=== PATIENT | male | born 1980 | race Asian ===

== ENCOUNTER 2017-07-30 08:24 | Emergency (ER) | payer OTHER ==
[2017-07-30 08:37] VITALS: BP 99/56
--- NOTE | 2017-07-30 09:05 | UC ---
Neck Pain HPI - HPI Summary HPI Summary: 37 yo Chinese male no phmx c/o acute left neck pain and spasm radiating to the top of left trapezius as he woke up with pain this AM. Denies numbness and tingling - History of Current Complaint Chief Complaint: UCUpperExtremity Stated Complaint: STIFF PAINFUL SHOULDER Time Seen by Provider: 07/30/17 08:35 Hx Obtained From: Patient Onset/Duration: Sudden Onset Severity: Moderate Pain Intensity: 8 - Allergies/Home Medications Allergies/Adverse Reactions: Allergies Allergy/AdvReac Type Severity Reaction Status Date / Time No Known Allergies Allergy Verified 07/30/17 08:37 Home Medications: Home Medications Cholecalciferol TAB* [Vitamin D TAB*] 1 tab PO DAILY 07/30/17 [History Confirmed 07/30/17] Ibuprofen TAB* [Advil TAB*] 200 mg PO Q6HR PRN 07/30/17 [History Confirmed 07/30] PMH/Surg Hx/FS Hx/Imm Hx - Additional Past Medical History Additional PMH: NO PMHX Previously Healthy: Yes - Surgical History Surgical History: Yes Surgery Procedure, Year, and Place: broken nose repair - Social History Alcohol Use: Rare Substance Use Type: None Smoking Status (MU): Never Smoked Tobacco Review Of Systems Constitutional: Positive: Negative Skin: Positive: Negative ENT: Positive: Negative Respiratory: Positive: Negative Cardiovascular: Positive: Negative Musculoskeletal: Positive: Decreased ROM - SEE HPI Neurological: Positive: Negative Psychological: Positive: Negative All Other Systems Reviewed And Are Negative: Yes Physical Exam Triage Information Reviewed: Yes Vital Signs: Initial Vital Signs Temp 37.6 C 07/30/17 08:30 Pulse 82 07/30/17 08:30 Resp 20 07/30/17 08:30 BP 99/56 07/30/17 08:30 Pulse Ox 96 07/30/17 08:30 Eye Exam: Normal ENT Exam: Normal Dental Exam: Normal Neck exam: Normal Neck: Positive: Other: - Left posterior scalene and trapezial tenderness on slight movement, ROM about neck limited due to pain and spasm Respiratory Exam: Normal Cardiovascular Exam: Normal Abdominal Exam: Normal Musculoskeletal Exam: Normal Neurological Exam: Normal Psychological Exam: Normal Skin Exam: Normal Neck Pain Course/Dx - Course Course Of Treatment: Warm compresses, zanaflex and naproxen - Differential Dx/Diagnosis Provider Diagnoses: acute tortic[place] Discharge - Discharge Plan Condition: Stable Disposition: HOME Prescriptions: Naproxen Sodium [Naproxen Sodium 500 MG TAB] 500 mg PO BID 10 Days #20 tab tiZANidine TAB* [Zanaflex TAB*] 4 mg PO BEDTIME 5 Days #10 tab Referrals: Mariela Dunham MD [Primary Care Provider] -
== END 2017-07-30 09:25 | disposition home or self-care (01) ==
LOC: UCEAST 08:24
DX: M43.6 Torticollis (principal)
CPT/HCPCS: 99212; G0463

== ENCOUNTER 2018-02-06 21:28 | Emergency (ER) | payer OTHER ==
[2018-02-06 21:42] VITALS: BP 109/69
[2018-02-06] MEDS ORDERED: Cephalexin CAP* 500 MG PO ONE (21:47)
--- NOTE | 2018-02-06 21:57 | UC ---
General HPI - HPI Summary HPI Summary: states he has been having right ear itching for the past week, he believes he was bitten by an insect but states today he began feeling a burning sensation on it and it is painful to the touch. Denies chills or fever - History of Current Complaint Chief Complaint: UCEar Stated Complaint: EAR PAIN Time Seen by Provider: 02/06/18 21:41 Hx Obtained From: Patient Onset/Duration: Sudden Onset, Lasting Days Onset Severity: Mild Current Severity: Moderate Pain Intensity: 4 - Allergy/Home Medications Allergies/Adverse Reactions: Allergies Allergy/AdvReac Type Severity Reaction Status Date / Time No Known Allergies Allergy Verified 02/06/18 21:43 Home Medications: Home Medications NK [No Home Medications Reported] 02/06/18 [History Confirmed 02/06/18] PMH/Surg Hx/FS Hx/Imm Hx Previously Healthy: Yes - Surgical History Surgical History: Yes Surgery Procedure, Year, and Place: broken nose repair - Family History Known Family History: Positive: Hypertension - Social History Alcohol Use: Rare Substance Use Type: None Smoking Status (MU): Never Smoked Tobacco Review of Systems Constitutional: Negative Skin: Rash ENT: Ear Ache All Other Systems Reviewed And Are Negative: Yes Physical Exam Triage Information Reviewed: Yes Appearance: Well-Appearing, No Pain Distress, Well-Nourished Vital Signs: Initial Vital Signs Temp 97.5 F 02/06/18 21:37 Pulse 76 02/06/18 21:37 Resp 18 02/06/18 21:37 BP 109/69 02/06/18 21:37 Pulse Ox 96 02/06/18 21:37 Vital Signs Reviewed: Yes Eyes: Positive: Conjunctiva Clear ENT: Positive: Hearing grossly normal, Pharynx normal, TMs normal, Other - erythema and tenderness on right ear auricle Neck exam: Normal Neck: Positive: Supple, Nontender Respiratory: Positive: Chest non-tender, Lungs clear, Normal breath sounds, No respiratory distress Cardiovascular: Positive: RRR, No Murmur, Pulses Normal, Brisk Capillary Refill Course/Dx - Course Course Of Treatment: patient with erythema and tenderness on right ear auricle , start keflex as prescribed, po fluids. F/u with PCP , return to if symptoms do not improve with antibiotic - Differential Dx - Multi-Symptom Provider Diagnoses: cellulitis right ear auricle Discharge - Sign-Out/Discharge Documenting (check all that apply): Patient Departure - Discharge Plan Condition: Good Disposition: HOME Prescriptions: Cephalexin CAP* [Keflex 500 CAP*] 500 mg PO TID 5 Days #15 cap Patient Education Materials: Cellulitis (ED), Cephalexin (By mouth) Referrals: Mariela Dunham MD [Primary Care Provider] - - Billing Disposition and Condition Condition: GOOD Disposition: Home
== END 2018-02-06 22:05 | disposition home or self-care (01) ==
LOC: UCEAST 21:28
DX: H60.11 Cellulitis of right external ear (principal)
CPT/HCPCS: 99202; A9270-GY; G0463

== ENCOUNTER 2018-03-09 15:34 | Emergency (ER) | payer OTHER ==
[2018-03-09 16:16] VITALS: BP 110/65
--- NOTE | 2018-03-09 16:54 | UC ---
Throat Pain/Nasal Babatunde HPI - HPI Summary HPI Summary: sore throat x 2 days no nasal congestion , no cough , no fever , no chills - History of Current Complaint Chief Complaint: UCGeneralIllness Stated Complaint: SORE THROAT,FATIGUE Time Seen by Provider: 03/09/18 16:37 Hx Obtained From: Patient Onset/Duration: Gradual Onset, Lasting Days - 2, Still Present Severity: Moderate Pain Intensity: 7 Cough: Nonproductive Associated Signs & Symptoms: Negative: Sinus Discomfort, Nasal Discharge, Fever , Rash - Allergies/Home Medications Allergies/Adverse Reactions: Allergies Allergy/AdvReac Type Severity Reaction Status Date / Time No Known Allergies Allergy Verified 03/09/18 16:16 PMH/Surg Hx/FS Hx/Imm Hx Previously Healthy: Yes - Surgical History Surgical History: Yes Surgery Procedure, Year, and Place: broken nose repair - Family History Known Family History: Positive: Hypertension - Social History Alcohol Use: Rare Substance Use Type: None Smoking Status (MU): Never Smoked Tobacco Review of Systems Constitutional: Negative Skin: Negative Eyes: Negative ENT: Sore Throat Respiratory: Negative Cardiovascular: Negative Is Patient Immunocompromised?: No All Other Systems Reviewed And Are Negative: Yes Physical Exam Triage Information Reviewed: Yes Appearance: Well-Appearing, No Pain Distress, Well-Nourished Vital Signs: Initial Vital Signs Temp 98.4 F 03/09/18 16:11 Pulse 101 03/09/18 16:11 Resp 18 03/09/18 16:11 BP 110/65 03/09/18 16:11 Pulse Ox 99 03/09/18 16:11 Vital Signs Reviewed: Yes Eye Exam: Normal Eyes: Positive: Conjunctiva Clear ENT: Positive: Normal ENT inspection, Hearing grossly normal, Pharyngeal erythema. Negative: TM bulging, TM dull Neck: Positive: Supple, Nontender, No Lymphadenopathy Respiratory: Positive: Chest non-tender, Lungs clear, Normal breath sounds Cardiovascular: Positive: RRR, No Murmur, Pulses Normal Neurological Exam: Normal Throat Pain/Nasal Course/Dx - Differential Dx/Diagnosis Provider Diagnoses: pharyngitis Discharge - Sign-Out/Discharge Documenting (check all that apply): Patient Departure All imaging exams completed and their final reports reviewed: No Studies - Discharge Plan Condition: Stable Disposition: HOME Patient Education Materials: Pharyngitis (ED) Referrals: Mariela Dunham MD [Primary Care Provider] - If Needed - Billing Disposition and Condition Condition: STABLE Disposition: Home
== END 2018-03-09 17:00 | disposition home or self-care (01) ==
LOC: UCEAST 15:34
DX: J02.9 Acute pharyngitis, unspecified (principal)
CPT/HCPCS: 87651; 99211; G0463

== ENCOUNTER 2018-09-12 15:25 | Emergency (ER) | payer OTHER ==
[2018-09-12 15:35] VITALS: BP 108/63
--- NOTE | 2018-09-12 15:46 | UC ---
Back Pain HPI - HPI Summary HPI Summary: was seated on stool today around 8am and bent to R to pick phone up and felt sharp pain in lower back. was able to ambulate and actually felt a bit better after standing for a while. took ibuprofen 200mg with little relief. cont to be painful. never loss bowel or bladder control - History of Current Complaint Chief Complaint: UCBackPain Stated Complaint: BACK INJURY Time Seen by Provider: 09/12/18 15:40 Hx Obtained From: Patient Onset/Duration: Sudden Onset Timing: Constant Severity Initially: Moderate Severity Currently: Moderate Pain Intensity: 8 Character: Throbbing, Spasmodic, Stiffness Aggravating Factor(s): Movement, Bending Alleviating Factor(s): Heat, Other - ambulation Associated Signs And Symptoms: Negative: Weakness, Numbness, Tingling, Flank Pain, Bladder Incontinence, Bowel Incontinence - Allergies/Home Medications Allergies/Adverse Reactions: Allergies Allergy/AdvReac Type Severity Reaction Status Date / Time No Known Allergies Allergy Verified 09/12/18 15:35 PMH/Surg Hx/FS Hx/Imm Hx Previously Healthy: Yes - Surgical History Surgical History: Yes Surgery Procedure, Year, and Place: broken nose repair - Family History Known Family History: Positive: Hypertension - Social History Occupation: Employed Full-time - professor Lives: With Family Alcohol Use: Rare Substance Use Type: None Smoking Status (MU): Never Smoked Tobacco Review of Systems All Other Systems Reviewed And Are Negative: Yes Constitutional: Positive: Negative Respiratory: Positive: Negative Cardiovascular: Positive: Negative Musculoskeletal: Positive: Other: - low back pain Neurological: Positive: Negative Psychological: Positive: Negative Physical Exam Triage Information Reviewed: Yes Appearance: Well-Appearing, No Pain Distress, Well-Nourished Vital Signs: Initial Vital Signs Temp 99.1 F 09/12/18 15:32 Pulse 79 09/12/18 15:32 Resp 18 09/12/18 15:32 BP 108/63 09/12/18 15:32 Pulse Ox 98 09/12/18 15:32 Vital Signs Reviewed: Yes Neck exam: Normal Respiratory Exam: Normal Respiratory: Positive: Lungs clear Cardiovascular Exam: Normal Cardiovascular: Positive: RRR Musculoskeletal: Positive: ROM Limited @ - low back d/t pain Neurological Exam: Normal Psychological Exam: Normal Skin Exam: Normal Skin: Negative: Rashes Back Pain Course/Dx - Differential Dx/Diagnosis Differential Diagnosis/HQI/PQRI: Herniated Disc, Strain, Sprain Provider Diagnosis: Low back pain Discharge - Sign-Out/Discharge Documenting (check all that apply): Patient Departure All imaging exams completed and their final reports reviewed: No Studies - Discharge Plan Condition: Stable Disposition: HOME Prescriptions: Cyclobenzaprine TAB* [Flexeril 10 MG TAB*] 10 mg PO TID PRN #15 tab PRN Reason: Pain - Back Patient Education Materials: Low Back Strain (ED), Core Strengthening Exercises (GEN) Referrals: Mariela Dunham MD [Primary Care Provider] - 3 Days (if no better) Additional Instructions: Rest and apply heat to lower back start ibuprofen 600mg every 6 hours and take with fod use cyclobenzaprine muscle relaxer - no drivng while taking start back exercises (included) in 2 days - Billing Disposition and Condition Condition: STABLE Disposition: Home - Attestation Statements Provider Attestation: I was available for consult. This patient was seen by the TY. The patient was not presented to , seen by or examined by sd -Devan Bobby MD
== END 2018-09-12 16:19 | disposition home or self-care (01) ==
LOC: UCEAST 15:25
DX: M54.5 Low back pain (principal)
CPT/HCPCS: 99212; G0463

== ENCOUNTER 2019-01-14 17:55 | Emergency (ER) | payer BC, OTHER ==
--- OUTSIDE RECORDS SUMMARY | 2019-01-14 18:03 | XMS REPORT | Continuity of Care Document ---
:1980 External Reference #:[id number] Author Name NAVEEN Duran Address [address] [place] [address] Care Team Providers Name Role Phone Linda Silva M.D. Care Team Information Clerical Warehouseman Unavailable Linda Silva M.D. Primary Care Physician Unavailable Payers Date Identification Numbers Payment Provider Subscriber Policy Number: [id number] [place] Plan [employer] PayID: [id number] [address] [place] [address] Problems Active Problems Provider Date Systemic lupus erythematosus Linda Silva M.D. Onset: 09/28/2018 Family History Date Family Member(s) Observation Comments Onset: (age 70 Years) Father Stroke Father 70 Father Hypertension Mother Hypertension Mother 64 Mother Hypothyroidism First Son No Current Problems First Sister Gastroesophageal Reflux Disease (GERD) First Sister Hypothyroidism Social History Type Date Description Comments Sex Unknown Marital Status . Lives With Spouse Lives With Son Diet Healthy, Well Balanced Occupation Professor [employer] Tobacco Use Start: Unknown Never Smoked Cigarettes ETOH Use Rare Tobacco Use Start: Unknown Patient has never smoked Recreational Drug Use Denies Drug Use Smoking Status Reviewed: 09/28/18 Patient has never smoked Exercise Type/Frequency Exercises sporadically Allergies, Adverse Reactions, Alerts Description No Known Drug Allergies Medications Active Medications SIG Qnty Indications Ordering Provider Date Sulfamethoxazole/Tri take 1 tablet by 14tabs L03.115 Jackelyn 01/14/2019 methoprim DS mouth twice a day NAVEEN Harley x 7 days finish 800-160mg Tablets all medication History Medications No Active Medications Unknown 09/28/2018 - 01/14/2019 Vital Signs Date Vital Result Comment 01/14/2019 11:23am BP Systolic 102 mmHg BP Diastolic 66 mmHg Heart Rate 76 /min Body Temperature 97.7 F Respiratory Rate 16 /min Weight 163.00 lb 11/08/2018 3:06pm BP Systolic 108 mmHg BP Diastolic 66 mmHg Heart Rate 78 /min Body Temperature 98.4 F Respiratory Rate 16 /min Height 68 inches 5'8" Weight 163.12 lb BMI (Body Mass Index) 24.8 kg/m2 09/28/2018 9:13am BP Systolic 100 mmHg BP Diastolic 60 mmHg Heart Rate 84 /min Body Temperature 97.8 F Respiratory Rate 16 /min Height 68 inches 5'8" Weight 163.00 lb BMI (Body Mass Index) 24.8 kg/m2 Results Test Date Facility Test Result H/L Range Note Suly Panel--LD 09/28/2018 [facility] Rheumatoid Factor < 10 IU/mL N <15 ([facility] U1 HYDROELECTRIC SYSTEMS TECHNICIAN/SNRNP Igg 09/28/2018 [facility] U1 HYDROELECTRIC SYSTEMS TECHNICIAN IgG Autoabs <0.2 U 1 Autoabs Ssa/SSB Abs Igg 09/28/2018 [facility] SS-A/Ro Antibody 1.2 U Abnormal 2 SS-B/La Antibody <0.2 U 3 Connective Tissue Panel 09/28/2018 [facility] Anti-Nuclear Antibody 0.6 U 4 Cyclic Citrullinated Peptide <15.6 U 5 Interpretation See Comment 6 Laboratory test 09/28/2018 [facility] C Reactive Protein 1.60 mg/L N <8.01 finding Ua - Micro (Fma) 09/28/2018 [facility] Medicine Appearance clear (607)- - Color yellow Glucose, Urine (Fma/CMC/CTX) neg Bilirubin neg Ketones neg SP Grav 1.020 Blood neg PH 7.0 Protein neg Urobil 0.2 Nitrite neg Leukocytes (Fma/CMC/Centrex) neg Hyaline - /Lpf Granular - /Lpf WBC (Fma,Centrex) 0-1 # RBC 0-1 # Mucus (Fma/CBC/Centrex) mod amt /Lpf # Epith - /Lpf Bacteria trace /Hpf # Amorphous (Fma/CMC/Centrex) lg amt /Lpf # Crystals, Fluid (Fma/CMC/CTX) - Z#Comments - Laboratory test 09/28/2018 [facility] Sedimentation Rate 11 mm finding (607)- - Comprehensive 09/28/2018 Ray Minnie(a) Sodium 141 mEq/L 134-14 Metabolic Prof 9 Potassium 4.6 mEq/L 3.6-5.5 Chloride 103 mEq/L 94-112 Carbon Dioxide 25 mEq/L 21-32 Glucose 105 mg/dL 70-105 BUN 14 mg/dL 6-26 Creatinine 0.8 mg/dL 0.6-1.4 BUN/Creat Ratio 17.5 CALC 8.0-36.0 Calcium 9.4 mg/dL 8.6-10.2 Total Protein 8.4 g/dL High 6.4-8.3 7 Albumin 5.1 g/dL 3.8-5.5 Globulin 3.3 g/dL 2.0-4.8 A/G Ratio 1.5 CALC 0.6-2.3 Alk. Phosphatase 52 U/L 22-95 Alt (SGPT) 19 U/L 7-35 Ast (Sgot) 22 U/L 5-34 Total Bilirubin 0.4 mg/dL 0.2-1.3 GFR Non- >60 ml/min/1.73m^ >=60 GFR >60 ml/min/1.73m^ >=60 Laboratory test finding 09/28/2018 Cory Minnie(fma) TSH 0.92 mIU/L 0.50-6.00 PSA 3.2 ng/mL 0.0-4.0 Free T4 1.16 ng/dL 0.75-1.54 Comprehensive Metabolic 08/18/2018 Cory Minnie(fma) Sodium 139 mEq/L 134-149 Prof Potassium 4.1 mEq/L 3.6-5.5 Chloride 103 mEq/L 94-112 Carbon Dioxide 28 mEq/L 21-32 Glucose 105 mg/dL 70-105 BUN 11 mg/dL 6-26 Creatinine 0.7 mg/dL 0.6-1.4 BUN/Creat Ratio 15.7 CALC 8.0-36.0 Calcium 8.8 mg/dL 8.6-10.2 Total Protein 7.4 g/dL 6.4-8.3 Albumin 4.6 g/dL 3.8-5.5 Globulin 2.8 g/dL 2.0-4.8 A/G Ratio 1.6 CALC 0.6-2.3 Alk. Phosphatase 51 U/L 22-95 Alt (SGPT) 45 U/L High 7-35 Ast (Sgot) 30 U/L 5-34 Total Bilirubin 0.5 mg/dL 0.2-1.3 GFR Non- >60 ml/min/1.73m^ >=60 GFR >60 ml/min/1.73m^ >=60 CBC Electronic a 08/13/2018 Cory Hartman([facility]) WBC 5.2 x10^3/UL 4.0- 10.0 RBC 4.64 x10^6/UL 3.93-6.00 HGB 13.6 g/dL 12.0-17.0 HCT 41 % 35-50 MCV 88.6 fL 80.0-95.0 MCH 29.3 pg 25.6-32.2 MCHC 33.1 g/dL 32.2-36.0 RDW-CV 13.2 % 11.6-14.4 PLT 230 x10^3/UL 163-400 MPV 9.3 fL Low 9.4-12.4 Lon# 2.41 x10^3/UL 1.56-6.13 Lymph# 2.01 x10^3/UL 1.18-3.74 Berg[place]# 0.66 x10^3/UL 0.24-0.82 Eos # 0.1 x10^3/UL 0.0-0.5 Baso # 0.03 x10^3/UL 0.01-0.08 Lon% 46.2 % 34.0-70.0 Lymph % 38.6 % 20.0-52.0 Berg[place]% 12.7 % High 5.0-12.0 Eos% 1.5 % 0.7-7.0 Baso% 0.6 % 0.1-1.2 Lipid Profile 08/13/2018 Cory Hartman([facility]) Cholesterol 159 mg/dL 120- 200 Triglycerides 50 mg/dL 30-200 HDL Cholesterol 61 mg/dL 30-70 LDL (Calculated) 88 CALC 0-129 VLDL Cholesterol 10 mg/dL 0-50 HDL Risk Factor 2.6 CALC 0.0-4.4 1 REFERENCE VALUE <1.0 (Negative) Test Performed by: [facility] - [facility] [address] [place] [address] 2 Interpretation: Positive (>=1.0) REFERENCE VALUE <1.0 (Negative) 3 REFERENCE VALUE <1.0 (Negative) Test Performed by: [facility] [employer] - [facility] [address] [place] [address] 4 REFERENCE VALUE <=1.0 (Negative) 5 REFERENCE VALUE <20.0 (Negative) 6 Tests for antibodies to dsDNA and JUAN MIGUEL antigens are not performed automatically unless the SULY result is > or= 3.0 U. Studies performed at [facility] indicate that positive SULY results <3.0 U are rarely accompanied by positive second order tests. Test Performed by: [facility] [employer] - [id number] [place] [address] 7 RESULTS VERIFIED BY REPEAT ANALYSIS Encounters Type Date Location Provider Dx Diagnosis Office Visit 11/08/2018 Main Office Linda Silva M.D. J06.9 Acute upper 3:20p respiratory infection, unspecified Plan of Treatment 01/14/2019 - Jackelyn Harley, FNPL03.115 Cellulitis of right lower limbNew Medication:Sulfamethoxazole/Trimethoprim DS 800-160 mg - take 1 tablet by mouth twice a day x 7 days finish allmedicationAllComments:Medication Management Patient Understands medications he 's taking? Yes No Are there Barriers to Adherence? Yes No Has the patient been asked about herbal supplements and therapies, andOT meds? Yes No As always, we strongly encourage a healthy diet and making physical activity a part of your every day life. If you have questions about how or where to start, please contact the office.
[2019-01-14 18:11] VITALS: BP 110/66
--- NOTE | 2019-01-14 19:19 | UC ---
General HPI - HPI Summary HPI Summary: 38-year-old male who had a pimple on his right knee develop on Thursday. The area became more red and tender and mildly swollen. He saw his primary care provider today and they started him on Bactrim. The patient has a history of lupus for which she takes no medications and he took the dose of Bactrim at 12: 30 today, approximately 3:15 he started feeling somewhat dizzy, nauseous. He is concerned because of the possible interaction with Bactrim and history of lupus. He has not had a lupus flare up for approximately 10 years and has not been on prednisone since then. Up until approximately 3:15 when he started feeling poorly, he states that he was feeling normal and playing with his 2-year -old son. He did not have a fever at his primary care provider's office today. - History of Current Complaint Chief Complaint: UCGeneralIllness Stated Complaint: TOOK SULFUR WASN'T SUPPOSED TO Time Seen by Provider: 01/14/19 18:11 Hx Obtained From: Patient Onset/Duration: Gradual Onset Timing: Constant Onset Severity: Mild Current Severity: Moderate Pain Intensity: 6 Associated Signs & Symptoms: Positive: Dizziness, Fever, Nausea, Other - Patient just doesn't feel good today - Allergy/Home Medications Allergies/Adverse Reactions: Allergies Allergy/AdvReac Type Severity Reaction Status Date / Time No Known Allergies Allergy Verified 01/14/19 19:22 Home Medications: Home Medications Sulfamethox/Trimethoprim DS* [Bactrim DS 800/160 TAB*] 1 tab PO BID 01/14/19 [ History Confirmed 01/14/19] PMH/Surg Hx/FS Hx/Imm Hx Previously Healthy: Yes Neurological History: Other - LUPUS... Not on any medications for this. - Surgical History Surgical History: Yes Surgery Procedure, Year, and Place: broken nose repair - Family History Known Family History: Positive: Hypertension - Social History Alcohol Use: None Substance Use Type: None Smoking Status (MU): Never Smoked Tobacco Review of Systems All Other Systems Reviewed And Are Negative: Yes Constitutional: Positive: Fever, Chills - Patient has fever and chills here but has not had fever until coming here. Motor: Positive: Negative Neurovascular: Positive: Negative Musculoskeletal: Positive: Arthralgia, Other: - Pain right knee with swelling and redness however he states his knee feels a little bit better this afternoon. Neurological: Positive: Other - States he feels dizzy and just doesn't feel well. Psychological: Positive: Negative Is Patient Immunocompromised?: No Physical Exam Triage Information Reviewed: Yes Appearance: Well-Appearing, No Pain Distress, Well-Nourished Vital Signs: Initial Vital Signs Temp 101.2 F 01/14/19 18:08 Pulse 106 01/14/19 18:08 Resp 18 01/14/19 18:08 BP 110/66 01/14/19 18:08 Pulse Ox 99 01/14/19 18:08 Vital Signs Reviewed: Yes Eyes: Positive: Conjunctiva Clear Respiratory: Positive: Lungs clear, Normal breath sounds, No respiratory distress, No accessory muscle use Cardiovascular: Positive: No Murmur, Pulses Normal, Brisk Capillary Refill, Tachycardia Musculoskeletal: Positive: Strength Intact, ROM Intact, Other: - Right knee is mildly swollen and tender on palpation. There is some erythema to the anterior portion. There appears to be erythema just proximal to the patella however it' s not tender on palpation and is not warm to touch. Knee and patellar ligaments are intact. Neurological: Positive: Alert, Muscle Tone Normal Psychological Exam: Normal Skin: Positive: Other - Above notes. Course/Dx - Course Course Of Treatment: Right knee x-ray: Bursa swollen as read by Dr. Pedro. (No radiologist available to review the x-ray) I discussed the case with Dr. pedro and we were going to change the antibiotic however while the patient was here he started feeling worse, continue to have a fever of 101 and then started getting chills. Therefore he was referred to the emergency room for further treatment. He refused an ambulance ride. I advised him that if he feels poorly with increased dizziness he is to pulling unit operator and call 911. The patient verbalizes understanding and once again refuses ambulance. - Diagnoses Provider Diagnosis: Right knee pain, Fever Discharge - Sign-Out/Discharge Documenting (check all that apply): Patient Departure All imaging exams completed and their final reports reviewed: No - Discharge Plan Condition: Fair Disposition: HOME-RECOMMEND TO ED Referrals: Linda Silva MD [Primary Care Provider] - Additional Instructions: After the evaluation by the nurse practitioner, it is recommended that you go to the emergency room for further evaluation of the right knee pain and possible infection where you should receive additional testing that can be completed in the emergency department. It is recommended that you go directly to the emergency department. This evaluation may include blood work or imaging. This testing will be directed and decided by the provider that evaluates you within the emergency department. If pain becomes worse, you feel lightheaded or any worsening of symptoms, or have any other concerns while you are driving to the emergency room, please pulling unit operator and call 911. - Billing Disposition and Condition Condition: FAIR Disposition: Home-Recommend to ED
--- NOTE | 2019-01-15 11:07 | UC ---
- Progress Note Progress Note: Patient Name: KOLBY BALLARD Medical Record#: [id number] Ordering Physician: Amena Mendez [employer]PERVISOR Acct.#: [id number] : 1980 Age: 38 Sex: M Location: [facility] Exam Date: 01/14/191822 ADM Status: DEP ER Order Information: KNEE RIGHT 4+ VWS Accession Number: [id number] CPT: 55924 INDICATION: Atraumatic right knee pain COMPARISON: None TECHNIQUE: 4 view radiograph of the right knee. FINDINGS: The visualized bones are well-corticated and properly aligned. The joint spaces are properly maintained. There is no radiographic evidence of joint effusion. There is no acute fracture, dislocation or other focal bony abnormality. IMPRESSION: Normal knee radiograph as described above. If the patient's symptoms persist, follow-up imaging is recommended. R2 Preliminary Imaging Read R2 <Electronically signed by Eze Vera MD in OV> 01/15/19 1054 Dictated By: Eze Vera MD Dictated Date/Time: 01/15/19 1054 Transcribed Date/Time: 01/15/19 1053 Copy to: CC:Linda Silva MD; Hector Soto MD; Amena Mendez NP Imaging - [facility] Imaging - [facility] [address] [place] [address] ph ([phone]) ph ([phone]) ph ([phone]) This report is only to be considered final once signed by the Provider(s) as displayed in the "<Electronically Signed by >" field (s). Absence of a signature indicates the report is in a draft status and still needs to be finalized. In the event this document was created by someone other than the signing Provider, the individual initiating the document will be listed in the "Entered by:" or "Dictated by:" sahni. 1 of 1 Course/Dx - Diagnoses Provider Diagnoses: Right knee pain, Fever Discharge - Sign-Out/Discharge Documenting (check all that apply): Post-Discharge Follow Up All imaging exams completed and their final reports reviewed: Yes - Discharge Plan Condition: Fair Disposition: HOME-RECOMMEND TO ED Referrals: Linda Silva MD [Primary Care Provider] - Additional Instructions: After the evaluation by the nurse practitioner, it is recommended that you go to the emergency room for further evaluation of the right knee pain and possible infection where you should receive additional testing that can be completed in the emergency department. It is recommended that you go directly to the emergency department. This evaluation may include blood work or imaging. This testing will be directed and decided by the provider that evaluates you within the emergency department. If pain becomes worse, you feel lightheaded or any worsening of symptoms, or have any other concerns while you are driving to the emergency room, please door puller and call 911. - Billing Disposition and Condition Condition: FAIR Disposition: Home-Recommend to ED
== END 2019-01-14 19:00 | disposition home health service (06) ==
LOC: UCEAST 17:55
DX: M25.561 Pain in right knee (principal); R50.9 Fever, unspecified
CPT/HCPCS: 99212; G0463

== ENCOUNTER → 2019-01-14 19:15 | Emergency (ER) | payer BC ==
[~2019-01-14 19:15] MED LIST: Clindamycin CAP* 150 MG PO ONE
--- NOTE | 2019-01-14 19:39 | ED ---
Skin Complaint - HPI Summary HPI Summary: The patient is a 38 y/o M presenting to [facility] with a chief complaint of sudden onset fevers, chills, and SANTOS today around 1530. He reports that he has a raised bump on the right anterior knee with erythema, so he went to his PCP today, who prescribed him sulfa abx for infection. Around 1530, he developed fevers, chills , and SANTOS, and then he went to Urgent Care as the symptoms did not change by 1800 , and then he was sent here. The pain is currently rated 7/10 in severity, and it is aggravated by ambulation. He states that he was concerned because he did not initially realize that the abx were sulfas, which he was told not to use by his arts administrator because he has dx of Lupus. He has not had a Lupus flare-up since 2007 because he is being managed with steroids, although he was experiencing some minor flare-ups 2-3 months ago. He last had appointment with his arts administrator about a month and a half ago, and he has an upcoming appointment next week. No other PMHx. Nonsmoker, no EtOH, no substance use. - History of Current Complaint Chief Complaint: EDRashSkinAbscess Time Seen by Provider: 01/14/19 19:31 Stated Complaint: INFECTION ON KNEE, NAUSEA PER PT Hx Obtained From: Patient Onset/Duration: Started Days Ago, Still Present, Worse Since - today Skin Exposure Onset/Duration: Days Ago Timing: Lasting Days Onset Severity: Mild Current Severity: Moderate Pain Intensity: 7 Pain Scale Used: 0-10 Numeric Skin Location: Leg - right knee Character: Pain, Redness, Raised Aggravating Symptom(s): Other: - ambulation Alleviating Symptom(s): Nothing Associated Signs & Symptoms: Fever, Chills - Allergy/Home Medications Allergies/Adverse Reactions: Allergies Allergy/AdvReac Type Severity Reaction Status Date / Time No Known Allergies Allergy Verified 01/14/19 19:22 PMH/Surg Hx/FS Hx/Imm Hx Endocrine/Hematology History: Reports: Hx Systemic Lupus Erythematosus Denies: Hx Diabetes, Hx Thyroid Disease Cardiovascular History: Denies: Hx Hypertension Respiratory History: Denies: Hx Asthma, Hx Chronic Obstructive Pulmonary Disease (COPD) GI History: Denies: Hx Ulcer - Surgical History Surgical History: Yes Surgery Procedure, Year, and Place: broken nose repair Infectious Disease History: No Infectious Disease History: Denies: Hx Hepatitis, Hx Human Immunodeficiency Virus (HIV), Traveled Outside the [place] in Last 30 Days - Family History Known Family History: Positive: Hypertension - Social History Alcohol Use: None Hx Substance Use: No Substance Use Type: Reports: None Hx Tobacco Use: No Smoking Status (MU): Never Smoked Tobacco Do You Chew or Dip Tobacco: No Have You Chewed or Dipped Tobacco in the LAST YEAR: No Have You Smoked in the Last Year: No Review of Systems Positive: Fever, Chills Positive: Other - raised bump with erythema on the right knee All Other Systems Reviewed And Are Negative: Yes Physical Exam - Summary Physical Exam Summary: Appearance: Well appearing, no pain distress Skin: papule with erythema on the right knee, warm, dry, reflects adequate perfusion Head/face: normal Eyes: EOMI, PHAM ENT: normal Neck: supple, non-tender Respiratory: CTA, breath sounds present Cardiovascular: RRR, pulses symmetrical Abdomen: non-tender, soft Musculoskeletal: normal, strength/ROM intact Neuro: normal, sensory motor intact, A&Ox3 Triage Information Reviewed: Yes Vital Signs On Initial Exam: Initial Vitals Temp Pulse Resp BP Pulse Ox 100.2 F 110 16 131/85 99 01/14/19 19:15 01/14/19 19:15 01/14/19 19:15 01/14/19 19:15 01/14/19 19:15 Vital Signs Reviewed: Yes Diagnostics - Vital Signs Vital Signs Temp Pulse Resp BP Pulse Ox 01/14/19 19:15 100.2 F 110 16 131/85 99 - Laboratory Lab Statement: Any lab studies that have been ordered have been reviewed, and results considered in the medical decision making process. Re-Evaluation - Re-Evaluation First Eval Re-Evaluation Time: 19:40 Comment: I discussed discharge with the patient. Course/Dx - Course Course Of Treatment: The patient is a 38 y/o M presenting to [facility] with a chief complaint of sudden onset fevers, chills, and SANTOS today around 1530 after being prescribed sulfa abx for a raised bump on the right anterior knee with erythema , but he was told not to use sulfa abx due to dx of Lupus. Upon physical exam, the patient exhibits a papule with erythema on the right knee. I suspect that the sulfa abx are causing the patients symptoms. He is diagnosed with cellulitis. He is prescribed Clindamycin with first dose in ED and advised to stop abx prescribed by PCP. He will follow up with his arts administrator as planned. He agrees with this plan. - Diagnoses Provider Diagnoses: Cellulitis Discharge - Sign-Out/Discharge Documenting (check all that apply): Patient Departure - Patient will be discharged home. Patient Received Moderate/Deep Sedation with Procedure: No - Discharge Plan Condition: Stable Disposition: HOME Prescriptions: Clindamycin Cap(NF) [Clindamycin Cap 300 mg Cap(NF)] 300 mg PO Q6H #40 cap Patient Education Materials: Cellulitis (DC) Referrals: Linda Silva MD [Primary Care Provider] - 3 Days Additional Instructions: Please take Clindamycin instead of the sulfa given to you by your primary care provider. Follow up with your arts administrator as scheduled. Follow up with your primary care provider in 2-3 days. RETURN TO THE EMERGENCY DEPARTMENT FOR ANY NEW OR WORSENING SYMPTOMS. - Billing Disposition and Condition Condition: STABLE Disposition: Home - Attestation Statements Document Initiated by Lili: Yes Documenting Scribe: Mireille Borrego Provider For Whom Lili is Documenting (Include Credential): Dr. Mega Vilchis MD Scribe Attestation: Mireille Martinez scribed for Dr. Mega Vilchis MD on 01/15/19 at 1629. Scribe Documentation Reviewed: Yes Provider Attestation: The documentation as recorded by the Mireille lama accurately reflects the service I personally performed and the decisions made by me, Dr. Meag Vilchis MD Status of Scribconstanza Document: Viewed
[2019-01-14 19:55] VITALS: BP 110/67
== END | disposition home or self-care (01) ==
LOC: ED 19:15
DX: L03.115 Cellulitis of right lower limb (principal); R50.9 Fever, unspecified; M32.9 Systemic lupus erythematosus, unspecified
CPT/HCPCS: 99282; A9270-GY

== ENCOUNTER 2019-01-17 12:08 | Emergency (ER) | payer BC ==
[2019-01-17 12:15] VITALS: BP 117/62
--- NOTE | 2019-01-17 13:03 | UC ---
Skin Complaint HPI - HPI Summary HPI Summary: 38 year old male with h/o SLE presents with dx;d cellulitis on right knee. Patient was seen here after seeing his PCP, dx'd with ? MrSA, given bactrim, felt he had a sensitiity to Bactrim. howevere developed knee pain, fever 101- sent to ER for evaluation. Changed meds to clindamycin, since no feer, chills , no pain with beding knee other then mild pain on skin. came today as feels rash is not improving, however no spreading. was very tender, now not improved - History of Current Complaint Chief Complaint: UCRash Time Seen by Provider: 01/17/19 12:21 Stated Complaint: RASH Hx Obtained From: Patient Onset/Duration: Sudden Onset, Lasting Days Skin Exposure Onset/Duration: Minutes Ago Onset Severity: Mild Current Severity: None Pain Intensity: 0 Pain Scale Used: 0-10 Numeric Location: Discrete - right knee laterally Aggravating Factor(s): Nothing Alleviating Factor(s): Nothing Associated Signs & Symptoms: Positive: Rash, Tenderness - Allergy/Home Medications Allergies/Adverse Reactions: Allergies Allergy/AdvReac Type Severity Reaction Status Date / Time Sulfa (Sulfonamide Allergy Rash Verified 01/17/19 12:15 Antibiotics) PMH/Surg Hx/FS Hx/Imm Hx - Surgical History Surgical History: Yes Surgery Procedure, Year, and Place: broken nose repair - Family History Known Family History: Positive: Hypertension - Social History Alcohol Use: None Substance Use Type: None Smoking Status (MU): Never Smoked Tobacco Have You Smoked in the Last Year: No Review of Systems All Other Systems Reviewed And Are Negative: Yes Constitutional: Negative: Fever, Chills, Fatigue Skin: Positive: Rash Musculoskeletal: Negative: Arthralgia, Myalgia Is Patient Immunocompromised?: No Physical Exam Triage Information Reviewed: Yes Appearance: Well-Appearing, No Pain Distress, Well-Nourished Vital Signs: Initial Vital Signs Temp 98.8 F 01/17/19 12:13 Pulse 88 01/17/19 12:13 Resp 18 01/17/19 12:13 BP 117/62 01/17/19 12:13 Pulse Ox 100 01/17/19 12:13 Vital Signs Reviewed: Yes Eyes: Positive: Conjunctiva Clear Musculoskeletal Exam: Normal Musculoskeletal: Positive: Strength Intact - right knee, ankle, ROM Intact, No Edema Psychological Exam: Normal Skin: Positive: Rashes - right knee mild erythema, + blanching, ~ 2cm x 1 cm region, no fluctuance, no tender to papation. Course/Dx - Course Course Of Treatment: REsolving Cellulitis = Prior Cellulitis, improved - Continue antibiotics as prescribed, take while awake - Increase fluid intake to help process medication - Motrin as needed for pain - Follow up with Dr. Silva if no improvement within 2-4 days - Go to ER with fever, internal knee pain, joint swelling - Avoid kneeling to increase healing, decrease trauma to area Ice, rest as needed for pain - Diagnoses Provider Diagnosis: Cellulitis of knee, right Discharge - Sign-Out/Discharge Documenting (check all that apply): Patient Departure All imaging exams completed and their final reports reviewed: No Studies - Discharge Plan Condition: Good Disposition: HOME Patient Education Materials: Cellulitis (ED) Referrals: Linda Silva MD [Primary Care Provider] - Additional Instructions: Prior Cellulitis, improved - Continue antibiotics as prescribed, take while awake - Increase fluid intake to help process medication - Motrin as needed for pain - Follow up with Dr. Silva if no improvement within 2-4 days - Go to ER with fever, internal knee pain, joint swelling - Avoid kneeling to increase healing, decrease trauma to area Ice, rest as needed for pain - Billing Disposition and Condition Condition: GOOD Disposition: Home - Attestation Statements Provider Attestation: Per institutional requirements, I have reviewed the chart, however, I was not consulted specifically or made aware of this patient by the midlevel provider. I did not personally evaluate, interact with , or disposition this patient.
== END 2019-01-17 13:09 | disposition home or self-care (01) ==
LOC: UCEAST 12:08
DX: L03.115 Cellulitis of right lower limb (principal); Z88.2 Allergy status to sulfonamides
CPT/HCPCS: 99211; G0463

== ENCOUNTER 2019-06-22 20:07 | Emergency (ER) | payer BC ==
--- NOTE | 2019-06-22 20:09 | UC ---
Neck Pain HPI - HPI Summary HPI Summary: 39 yo male presents with neck and jaw pain. He tells me that 2 days ago he was staying in a hotel and slept awkwardly on the pillow. Went to stretch whilst laying in bed and felt a pull in his left neck/shoulder. Had immediate pain. He rested and the area became stiff. Later that day he was massaging the area and was trying to stretch - felt lightheaded and fell from a seated position to his left and hit the left side of his face on a nearby crib. No LOC. He was ambulatory immediately following. Since that time he has been taking ibuprofen and using icy-hot to his neck/shoulder with great relief and feels things are improving. He is still having pain to his left TMJ at site of impact when he fell. He is able to eat, drink, and open/close his mouth/jaw without difficulty , but hurts to touch the area. He denies headache, dizziness, numbness, tingling , SOB, chest pain. - History of Current Complaint Stated Complaint: NECK PAIN Time Seen by Provider: 06/22/19 20:09 Hx Obtained From: Patient Onset/Duration: Sudden Onset Severity: Moderate Pain Intensity: 7 Pain Scale Used: 0-10 Numeric - Allergies/Home Medications Allergies/Adverse Reactions: Allergies Allergy/AdvReac Type Severity Reaction Status Date / Time Sulfa (Sulfonamide Allergy Rash Verified 01/17/19 12:15 Antibiotics) PMH/Surg Hx/FS Hx/Imm Hx - Additional Past Medical History Additional PMH: None - Surgical History Surgical History: Yes Surgery Procedure, Year, and Place: broken nose repair - Family History Known Family History: Positive: Hypertension - Social History Lives: With Family Alcohol Use: None Substance Use Type: None Smoking Status (MU): Never Smoked Tobacco Have You Smoked in the Last Year: No Review of Systems All Other Systems Reviewed And Are Negative: No Constitutional: Positive: Negative Skin: Positive: Negative Eyes: Positive: Negative ENT: Positive: Negative Respiratory: Positive: Negative Cardiovascular: Positive: Negative Gastrointestinal: Positive: Negative Motor: Positive: Negative Neurovascular: Positive: Negative Musculoskeletal: Positive: Other: - Neck pain Neurological: Positive: Negative Psychological: Positive: Negative Physical Exam - Summary Physical Exam Summary: GENERAL: NAD. WDWN. No pain distress. SKIN: No rashes, sores, or open wounds. HEENT: Head: No raccoon eyes or battles sign. Eyes: PERRLA. EOM intact. Ears: Hearing grossly normal. TMs intact, no bulging, erythema, or edema. No hemotympanum NECK: Supple. No lymphadenopathy. CHEST: CTAB. No r/r/w. No accessory muscle use. Breathing comfortably and in no distress. CV: RRR. Pulses intact. Brisk cap refill. MSK: LEFT NECK: Upper trapezius and neck musculature with mild TTP - feels better with massage to the area. Pain reproduced with lifting arms above head and turning head side to side. Moderate TTP about left TMJ with slight edema to the area. FROM and 5/5 strength throughout. No edema. Opens and closes jaw. Clenches teeth NEURO: Alert. PSYCH: Age appropriate behavior. Triage Information Reviewed: Yes Vital Signs: Vital Signs: Temp Pulse Resp BP Pulse Ox 98.9 F 80 18 115/66 98 06/22/19 20:11 06/22/19 20:11 06/22/19 20:11 06/22/19 20:11 06/22/19 20:11 Vital Signs Reviewed: Yes Diagnostics - Radiology TMJ Radiology Interpretation Completed By: ED Physician Summary of Radiographic Findings: ?transverse fx. Discussed with Dr. Deluca - low likelihood and appears more like a shadow. Neck Pain Course/Dx - Course Course Of Treatment: XR wet read of TMJ as above. Pt is opening and closing his jaw without issue. Agree with no fx at this time. Discussed with pt and we will call him in the morning with the official XR results and follow up with specialist if positive fx. Suspect contusion of face/cheek/TMJ at this time and spasm of left neck/ shoulder. Advised to continue rest, ice/heat, and NSAIDs. Practice gentle stretching. Will rx for flexeril F/u if symptoms do not continue to improve. - Differential Dx/Diagnosis Provider Diagnosis: Contusion of face, Neck muscle spasm Discharge ED - Sign-Out/Discharge Documenting (check all that apply): Patient Departure All imaging exams completed and their final reports reviewed: No - Discharge Plan Condition: Stable Disposition: HOME Prescriptions: Cyclobenzaprine TAB* [Flexeril 10 MG TAB*] 10 mg PO BID PRN #10 tab PRN Reason: Spasms Patient Education Materials: Contusion in Adults (ED), Muscle Spasm (ED) Referrals: Linda Silva MD [Primary Care Provider] - Additional Instructions: If you develop a fever, shortness of breath, chest pain, new or worsening symptoms - please call your PCP or go to the ED immediately. The XR of your cheek/jaw appears normal this evening --- we will call you in the morning with the official reading. I suspect you have a muscle spasm that will continue to improve with ice/heat and ibuprofen as you have been doing. May take the muscle relaxer as directed for discomfort/spasm. If your symptoms worsen or do not continue improving - please be rechecked - Billing Disposition and Condition Condition: STABLE Disposition: Home
[2019-06-22 20:17] VITALS: BP 115/66
--- NOTE | 2019-06-23 07:24 | UC ---
- Progress Note Progress Note: Pt requested call with radiology reading. RN to call pt. No acute changes in management. F/u as per avs instructions. Course/Dx - Diagnoses Provider Diagnoses: Contusion of face, Neck muscle spasm Discharge ED - Sign-Out/Discharge Documenting (check all that apply): Post-Discharge Follow Up All imaging exams completed and their final reports reviewed: Yes - Discharge Plan Condition: Stable Disposition: HOME Prescriptions: Cyclobenzaprine TAB* [Flexeril 10 MG TAB*] 10 mg PO BID PRN #10 tab PRN Reason: Spasms Patient Education Materials: Contusion in Adults (ED), Muscle Spasm (ED) Referrals: Linda Silva MD [Primary Care Provider] - Additional Instructions: If you develop a fever, shortness of breath, chest pain, new or worsening symptoms - please call your PCP or go to the ED immediately. The XR of your cheek/jaw appears normal this evening --- we will call you in the morning with the official reading. I suspect you have a muscle spasm that will continue to improve with ice/heat and ibuprofen as you have been doing. May take the muscle relaxer as directed for discomfort/spasm. If your symptoms worsen or do not continue improving - please be rechecked - Billing Disposition and Condition Condition: STABLE Disposition: Home
== END 2019-06-22 21:12 | disposition home or self-care (01) ==
LOC: UCEAST 20:07
DX: S00.83XA Contusion of other part of head, initial encounter (principal); M62.838 Other muscle spasm; Z88.2 Allergy status to sulfonamides; W01.198A Fall on same level from slipping, tripping and stumbling with subsequent striking against other object, initial encounter; Y92.9 Unspecified place or not applicable
CPT/HCPCS: 70330; 99212; G0463

== ENCOUNTER 2019-09-02 13:21 | Emergency (ER) | payer BC ==
[2019-09-02] MEDS ORDERED: Al Hydrox/Mg Hydrox/Simet LIQ* 30 ML UDC PO ONE (15:14)
[2019-09-02] MEDS ORDERED: Lidocaine 2% VISCOUS* 15 ML UDC PO ONE (15:14)
--- NOTE | 2019-09-02 15:18 | ED ---
HPI Chest Pain - HPI Summary HPI Summary: This pt is a 39 Y/O M presenting to [facility] with a CC of mid-sternal CP that is currently rated a 6/10 in severity and has been present since 08/24/2019 with alleviation. He states that the pain has been constant and is described as a pressure. He states that he also has dizziness, weakness, and lightheadedness. He states that he has had a dry throat and current cough. He states that he has been to [place] within the past month for a conference. He states that his last trip abroad was in March in [place]. Pt denies any fever, chills, erythema of eyes, sore throat, abdominal pain, N/V, dysuria, hematuria, myalgia, edema, rash , or dizziness. He states that he has no aggravating or alleviating factors. He states that he has a PMHx of Lupus. He states that his grandfather of an PR and his father has had an PR in his mid-60's. - History of Current Complaint Chief Complaint: EDChestPainROMI Time Seen by Provider: 09/02/19 14:59 Hx Obtained From: Patient Onset/Duration: Started Days Ago - 9, Still Present Timing: Constant, Lasting Days - 9 Initial Severity: Moderate Current Severity: Moderate Pain Intensity: 6 Pain Scale Used: 0-10 Numeric Chest Pain Location: Discrete at:, Mid Sternal Chest Pain Radiates: No Character: Pressure/Squeezing Aggravating Factor(s): Nothing Alleviating Factor(s): Nothing Associated Signs and Symptoms: Positive: Chest Pain, Weakness, Dizziness, Shortness of Breath, Lightheadedness, Cough. Negative: Fever, Chills, Nausea, Abdominal Pain, Vomiting - Allergy/Home Medications Allergies/Adverse Reactions: Allergies Allergy/AdvReac Type Severity Reaction Status Date / Time Sulfa (Sulfonamide Allergy Rash Verified 09/02/19 13:32 Antibiotics) Home Medications: Home Medications Calcium Carbonate CHEW TAB* [Tums*] 500 mg PO BID 09/02/19 [History Confirmed ] L.acidoph,Paracasei, B.lactis [Probiotic] 1 tab PO DAILY 09/02/19 [History Confirmed 09/02/19] Magnesium Hydroxide LIQ* [Milk of Magnesia LIQ*] 30 ml PO BID PRN 09/02/19 [ History Confirmed 09/02/19] PMH/Surg Hx/FS Hx/Imm Hx Previously Healthy: Yes Endocrine/Hematology History: Reports: Hx Systemic Lupus Erythematosus Denies: Hx Diabetes, Hx Thyroid Disease Cardiovascular History: Denies: Hx Hypertension Respiratory History: Denies: Hx Asthma, Hx Chronic Obstructive Pulmonary Disease (COPD) GI History: Denies: Hx Ulcer Neurological History: Reports: Other Neuro Impairments/Disorders - lupus - Cancer History Hx Chemotherapy: No Hx Radiation Therapy: No - Surgical History Surgical History: Yes Surgery Procedure, Year, and Place: broken nose repair - Immunization History Immunizations Up to Date: Yes Infectious Disease History: No Infectious Disease History: Denies: Hx Hepatitis, Hx Human Immunodeficiency Virus (HIV), Traveled Outside the [place] in Last 30 Days - Family History Known Family History: Positive: Hypertension - Social History Occupation: Employed Full-time - [employer] Lives: With Family Alcohol Use: None Hx Substance Use: No Substance Use Type: Reports: None Hx Tobacco Use: No Smoking Status (MU): Never Smoked Tobacco Have You Smoked in the Last Year: No Review of Systems Negative: Fever, Chills Negative: Erythema ENT: Other - dry throat Negative: Sore Throat Positive: Chest Pain Positive: Shortness Of Breath, Cough Negative: Abdominal Pain, Vomiting, Nausea Negative: dysuria, hematuria Negative: Myalgia, Edema Negative: Rash Neurological/Mental Status: Negative - dizziness Positive: Weakness All Other Systems Reviewed And Are Negative: Yes Physical Exam - Summary Physical Exam Summary: Constitutional: Well-developed, Well-nourished, Alert. (-) Distressed, Belching in the room Skin: Warm, Dry HENT: Normocephalic; Atraumatic Eyes: Conjunctiva normal Neck: Musculoskeletal ROM normal neck. (-) JVD, (-) Stridor, (-) Tracheal deviation Cardio: Rhythm regular, rate normal, Heart sounds normal; Intact distal pulses; The pedal pulses are 2+ and symmetric. Radial pulses are 2+ and symmetric. (-) Murmur Pulmonary/Chest wall: Effort normal. (-) Respiratory distress, (-) Wheezes, (-) Rales Abd: Soft, (-) tenderness, (-) Distension, (-) Guarding, (-) Rebound Musculoskeletal: (-) Edema Lymph: (-) Cervical adenopathy Neuro: Alert, Oriented x3 Psych: Mood and affect Normal Triage Information Reviewed: Yes Vital Signs On Initial Exam: Initial Vitals Temp Pulse Resp BP Pulse Ox 98.5 F 83 15 127/82 100 09/02/19 13:29 09/02/19 13:29 09/02/19 13:29 09/02/19 13:29 09/02/19 13:29 Vital Signs Reviewed: Yes Procedures - Sedation Patient Received Moderate/Deep Sedation with Procedure: No Diagnostics - Vital Signs Vital Signs Temp Pulse Resp BP Pulse Ox 09/02/19 15:08 79 24 127/69 100 09/02/19 15:00 15 09/02/19 14:59 19 09/02/19 13:29 98.5 F 83 15 127/82 100 - Laboratory Result Diagrams: 09/02/19 15:12 09/02/19 15:12 Lab Statement: Any lab studies that have been ordered have been reviewed, and results considered in the medical decision making process. - Radiology CXR Radiology Interpretation Completed By: Radiologist Summary of Radiographic Findings: NO ACTIVE CARDIOPULMONARY DISEASE. ED physician has reviewed this report. - EKG 1324 Cardiac Rate: NL - 83 BPM EKG Rhythm: Sinus Rhythm ST Segment: Normal Ectopy: None Summary of EKG Findings: EKG at 1324 shows Normal sinus rhythm at 83 bpm, normal CT, normal QRS, normal QTc, normal axis, normal ST, normal T-waves, normal EKG. Interpretated by Dr. Murguia at 1327 09/02/2019. Chest Pain Course/Dx - Course Course Of Treatment: This pt is a 39 Y/O M presenting to [facility] with a CC of epigastric CP that is currently rated a 6/10 in severity and has been present since 08/24/2019 with alleviation. He states that the pain has been constant and is described as a pressure. He states that he also has dizziness, weakness, and lightheadedness. He states that he has had a dry throat and current cough. He states that he has been to [place] within the past month for a conference. His PE found that he is currently belching in the room but is otherwise normal. CXR : NO ACTIVE CARDIOPULMONARY DISEASE. EKG at 1324 shows Normal sinus rhythm at 83 bpm, normal CT, normal QRS, normal QTc, normal axis, normal ST, normal T- waves, normal EKG. Signs and symptoms not compatible with angia or acute coronary syndrome. All pain is related to belching. Please consider an evaluation for depression or anxiety symptoms as well. Pt will be discharged home with a Dx of GERD and belching. - Diagnoses Provider Diagnoses: GERD (gastroesophageal reflux disease), Belching Discharge ED - Sign-Out/Discharge Documenting (check all that apply): Patient Departure - discharge - Discharge Plan Condition: Good Disposition: HOME Patient Education Materials: Gastroesophageal Reflux Disease (ED) Referrals: Linda Silva MD [Primary Care Provider] - 2 Days Additional Instructions: PLEASE FOLLOW UP WITH DR. SILVA, CARDIOLOGY, IN 1-3 DAYS AND RETURN TO THE EMERGENCY DEPARTMENT FOR ANY NEW OR WORSENING SYMPTOMS. Avoid gulping food or drink, gum chewing, carbonated beverages, and air swallowing. Signs and symptoms not compatible with angia or acute coronary syndrome. All pain is related to belching. Please consider an evaluation for depression or anxiety symptoms as well. - Attestation Statements Document Initiated by Scribe: Yes Documenting Scribe: Lloyd Stevens Provider For Whom Scribe is Documenting (Include Credential): Alvaro Murguia MD Scribe Attestation: Lloyd Martinez, scribed for Alvaro Murguia MD on 09/02/19 at 1620. Status of Scribe Document: Ready
[2019-09-02 15:19] LABS: ABS Basophils 0.1 10^3/ul (0-0.2); ABS Lymphocytes 1.7 10^3/ul (1.0-4.8); ABS Monocytes 0.5 10^3/ul (0-0.8); ABS Neutrophils 3.4 10^3/ul (1.5-7.7); Eosinophil % 0.7 %; Hematocrit 40 % (42-52); Hemoglobin 13.7 g/dL (14.0-18.0); Lymphocyte % 29.6 %; Mean Corpuscular HGB Conc 34 g/dL (31-36); Mean Corpuscular Hemoglobin 30 pg (27-31); Mean Corpuscular Volume 89 fL (80-94); Mean Platelet Volume 7.1 fL (7.4-10.4); Platelet Count 245 10^3/uL (150-450); Red Blood Count 4.52 10^6 /uL (4.18-5.48); Red Cell Distribution Width 14 % (10-15); White Blood Count 5.6 10^3/uL (3.5-10.8)
[2019-09-02 15:38] LABS: ALT 11 U/L (7-52); AST 19 U/L (13-39); Albumin 4.6 g/dL (3.2-5.2); Albumin/Globulin Ratio 1.4 (1-3); Alkaline Phosphatase 44 U/L (34-104); Anion Gap 6 mmol/L (2-11); BUN/Creatinine Ratio 12.5 (8-20); Blood Urea Nitrogen 11 mg/dL (6-24); CO2 Carbon Dioxide 27 mmol/L (22-32); Calcium 9.5 mg/dL (8.6-10.3); Chloride 105 mmol/L (101-111); EGFR African American 116.7 (>60); EGFR Non-African American 96.4 (>60); Globulin 3.4 g/dL (2-4); Glucose 89 mg/dL (70-100); Potassium 3.7 mmol/L (3.5-5.0); Sodium 138 mmol/L (135-145)
[2019-09-02 15:53] LABS: C Reactive Protein < 1.00 mg/L (<8.01)
[2019-09-02 17:15] VITALS: BP 118/67
== END 2019-09-02 17:16 | disposition home or self-care (01) ==
LOC: ED 13:21
DX: K21.9 Gastro-esophageal reflux disease without esophagitis (principal); R14.2 Eructation; M32.9 Systemic lupus erythematosus, unspecified; Z79.899 Other long term (current) drug therapy; Z88.2 Allergy status to sulfonamides
CPT/HCPCS: 36415; 71046; 80053; 84484; 85025; 86140; 93005; 99283; A9270-GY